=== PATIENT | female | born 1980 | race Caucasian/White ===

== ENCOUNTER → 2017-03-30 | Outpatient (CLI) | payer OTHER | END | disposition home or self-care (01) | LOC: LABWHC1 10:25 | PROVIDERS: ATTEND Obstetrics & Gynecology | DX: O99.419 Diseases of the circulatory system complicating pregnancy, unspecified trimester (principal); I49.9 Cardiac arrhythmia, unspecified; Z3A.00 Weeks of gestation of pregnancy not specified | CPT/HCPCS: 36415; 93005 ==

== ENCOUNTER 2017-07-23 17:42 | Outpatient (CLI) | payer OTHER ==
[2017-07-23] MEDS ORDERED: LACTATED RINGERS 1,000 ML IV SCH (18:30)
[2017-07-23 18:52] VITALS: BP 135/87; PULSE 115; RESP 18; TEMP 98.4
[2017-07-23 18:56] LABS: Basophils % (A) 0 %; CH 32.1; CHCM 35.7; Eosinophils # (A) 0.1 k/uL (0-0.7); Eosinophils % (A) 0 %; HCT 38.1 % (34.0-46.0); HDW 2.94; Luc % (Auto) 1; Lymphocytes # (A) 1.7 k/uL (1.0-4.8); Lymphocytes % (A) 13 %; MCH 30.9 pg (25.0-35.0); MCHC 34.1 g/dL (31.0-37.0); MCV 90.5 fL (80.0-100.0); Mean Platelet Volume 7.4; Monocytes # (A) 0.4 k/uL (0-1.0); Monocytes % (A) 3 %; Neutrophils # (A) 11.4 k/uL (1.3-7.7); Neutrophils % (A) 84 %; RBC 4.21 m/uL (3.80-5.40); WBC 13.6 k/uL (3.8-10.6)
--- NOTE | 2017-07-23 19:05 | P.HPOB ---
History of Present Illness H&P Date: 07/23/17 Chief Complaint: 28-3/7 weeks, spontaneous rupture of membranes The patient is a 36-year-old 3 para 1011 admitted to triage complaining of vaginal bleeding and leaking of fluid. [place] this early [place] and felt a small gush and then a much larger gush with bleeding when she got up. She has continued to leak since that time and presented to triage shortly thereafter. On labor and delivery, heart tones are reassuring and there is no contraction activity. This has been complicated by an episode of irregular heart rhythm which has been stable. She additionally was found with a low-lying placenta which remains in place by bedside ultrasound tonight which demonstrates what appears to be complete previa with a nondistended bladder. She additionally carries a history of a previous section at term for arrest of dilation and descent. She does fall into the category of advanced maternal age and declined testing. She denies any ongoing contractions and reports regular and normal movement. There were no precipitating events for this and she has no other risk factors. Obstetrical history: 3 para 1011 with 1 term delivery in uncomplicated fashion. Her second was complicated by acute CMV infection leading to hydropic changes in the second trimester and, ultimately resulting in medical interruption of . Current statistics are listed above. EDC of 10/12/2017 was established by last menstrual period and confirmed by 19 week ultrasound. Laboratory workup demonstrates a blood type of B+ with a negative antibody screen. Rubella status is immune. The remainder of the laboratory workup is within normal limits. One hour Glucola is normal as well. Group B strep status has not yet been done. Gynecologic history: Unremarkable with no history of any infections to include STDs. Review of Systems Review of systems is confined to history of present illness. Past Medical History History of Any Multi-Drug Resistant Organisms: None Reported Smoking Status: Former smoker Medications and Allergies Allergies Allergy/AdvReac Type Severity Reaction Status Date / Time Sulfa (Sulfonamide Allergy Rash/Hives Verified 07/23/17 18:16 Antibiotics) Exam - Vital Signs Vital signs: Vital Signs Temp Pulse Resp BP Pulse Ox 07/23/17 17:42 98.4 F 115 H 18 135/87 98 Intake and Output 07/23/17 07/23/17 07/23/17 06:59 14:59 22:59 Other: Weight 64.864 kg Patient Weight 07/24/17 06:59 Weight 64.864 kg In general, this is a pleasant, well-developed, well-nourished white female in no acute distress. Her heart has a regular rhythm and rate without murmur. Her lungs are clear to auscultation bilaterally in all humphrey. Her abdomen is gravid, nondistended, has normal active bowel sounds, is soft, nontender, and without any palpable masses aside from the uterine fundus. The uterus is soft and nontender without palpable contractions. Her extremities are without any cyanosis, clubbing, or edema and are nontender to palpation bilaterally. Digital cervical examination is not performed secondary to the presence of low lying placenta or possible complete previa. There is no significant ongoing vaginal bleeding of any kind. Assessment and Plan (1) 28 weeks gestation of Status: Acute (2) premature rupture of membranes Status: Acute (3) Marginal placenta previa Status: Acute Plan: Given the gestational age of the patient, she will be transferred to a tertiary care [place] from, likely [facility] in [place]. She is stable for transfer at this time with no contractions and heart tones reassuring. We will likely start prophylactic antibiotics as well as betamethasone. There is consideration for prophylactic magnesium sulfate as well. This will be further discussed with maternal medicine from whom I am awaiting a phone call. I have discussed the implications of prematurity with the patient at some length and she understands that she will likely remain as an inpatient for the remainder of her . She has accepted transfer.
[2017-07-23] MEDS ORDERED: BETAMET ACET-BETAMETH SOD PHOS 6 MG/ML VIAL IM SCH (19:15)
--- NOTE | 2017-07-23 19:17 | US ---
EXAMINATION TYPE: US OB >= 14 wk fetus DATE OF EXAM: 07/23/2017 COMPARISON: None CLINICAL HISTORY: 28 3/7 wks with spont. rom, and low lying placenta TECHNIQUE: Transabdominal (TA) GESTATIONAL AGE / DATING Physician Established: (28 weeks/3 days) EDC: 10/12/2017 Dates by Current Scan: (27 weeks/1 days) EDC: 10/21/2017 SURVEY IUP: Single PLACENTA: Posterior PREVIA: Complete,1.0 cm over internal os WALTER: 12.7 cm Normal CERVICAL LENGTH (transabdominal: norm > 3.0cm): 3.9 cm BIOMETRY PRESENTATION: Vertex BPD: 6.8 cm 27 weeks / 2 days HC: 25.4 cm 27 weeks / 4 days AC: 24.1 cm 28 weeks / 2 days FL: 5.0 cm 27 weeks / 0 days ESTIMATED WEIGHT IN GRAMS: 1123 grams ESTIMATED WEIGHT IN LBS/OZ: 2 lbs. 8 oz. WEIGHT PERCENTAGE BASED ON ESTABLISHED DATES: 16.7% HC/AC: 1.1 FL/AC: 20.9 HEART RATE: 162 bpm RHYTHM: Normal IMPRESSION: 1. LIVE IUP MEASURING 27 WEEKS 1 DAY. 2. SUBOPTIMAL VISUALIZATION OF CERVIX DUE TO NONDISTENDED BLADDER. 3. TRANSVAGINAL ULTRASOUND DEFERRED DUE TO POSSIBLE PROM.
[2017-07-23] MEDS ORDERED: MAGNESIUM SULFATE-D5W PMX 1 GM in DEXTROSE/WATER 1 100ML.BAG IVPB SCH (19:30)
[2017-07-23] MEDS: WATER FOR INJECTION IVPB STA ×2 (19:47→20:13)
[2017-07-23] MEDS: MAGNESIUM SULFATE WATER PMX IVPB STA ×2 (19:47→20:13)
[2017-07-23] MEDS ORDERED: AMPICILLIN 2,000 MG in SODIUM CHLORIDE 0.9% 100 ML IVPB SCH (20:00)
[2017-07-23] MEDS ORDERED: ERYTHROMYCIN IV 250 MG in SODIUM CHLORIDE 0.9% 250 ML IVPB SCH (21:00)
== END 2017-07-23 20:17 ==
LOC: FBPOP 17:42
PROVIDERS: ATTEND Obstetrics & Gynecology
DX: O42.913 Preterm premature rupture of membranes, unspecified as to length of time between rupture and onset of labor, third trimester (principal); O44.23 Partial placenta previa NOS or without hemorrhage, third trimester; Z3A.28 28 weeks gestation of pregnancy
CPT/HCPCS: 59025; 99215; 96361; 96365; 96366; 96372; 84112; 85025; 76805; J0702; J3475; J0290

== ENCOUNTER → 2024-10-27 | Outpatient (CLI) | payer BC ==
--- NOTE | 2024-11-03 19:29 | MM ---
Reason for Exam: Screening (asymptomatic). Patient History: Menarche at age 13. First Full-Term at age 31. Late child-bearing (after 30). Paternal grandmother had ovarian cancer, age 59. Mother had breast cancer, right, age 45. Last menstrual period: 10/27/2024 Risk Values: Izzy 5 year model risk: 1.4%. NCI Lifetime model risk: 18.8%. Prior Study Comparison: No prior studies available for comparison. Tissue Density: The breasts are heterogeneously dense, which may obscure small masses. Findings: Analyzed By CAD. 2 cm nodularity upper outer quadrant left breast for which evaluation is recommended. 3-D images suggested an obscured area of 1.3 cm nodularity lateral right CC view. Not clearly identified on the MLO view. Further evaluation recommended. No suspicious calcification or other discrete abnormality is seen. dye penetrant testing technician indicates that the patient feels an intermittent left-sided palpable lump. Overall Assessment: Incomplete: need additional imaging evaluation, BI-RAD 0 Management: Diagnostic Mammogram of both breasts. Diagnostic Breast Ultrasound of both breasts. Additional views on both sides to include 3-D ML. Subsequent whole bilateral breast ultrasounds given dense tissues. [facility] will attempt to contact patient to return for supplemental views and ultrasound. [facility], , 11/03/2024 6:37 PM. Electronically signed and approved by: Nawaf Baker M.D. Radiologist
== END | disposition home or self-care (01) ==
LOC: RADMAMWWP 15:36
PROVIDERS: ATTEND Family Medicine
DX: Z12.31 Encounter for screening mammogram for malignant neoplasm of breast (principal); Z80.3 Family history of malignant neoplasm of breast; R92.333 Mammographic heterogeneous density, bilateral breasts
CPT/HCPCS: 77063; 77067

== ENCOUNTER → 2024-11-16 | Outpatient (CLI) | payer BC ==
--- NOTE | 2024-11-16 10:59 | MM ---
Reason for Exam: Additional evaluation requested from abnormal screening. Last screening mammogram was performed less than 1 month ago. Patient History: Menarche at age 13. First Full-Term at age 31. Late child-bearing (after 30). Paternal grandmother had ovarian cancer, age 59. Mother had breast cancer, right, age 45. Risk Values: Izzy 5 year model risk: 1.4%. NCI Lifetime model risk: 18.8%. Prior Study Comparison: 10/27/2024 Bilateral MG 3D screening mammo w/cad, [facility]. Tissue Density: The breasts are heterogeneously dense, which may obscure small masses. Findings: Analyzed By CAD. There is a 2.0 cm circumscribed oval mass persists approximately 4 cm distance from nipple upper outer quadrant left breast on additional views. No suspicious persistent lesion in the right breast on additional views. Overall Assessment: Incomplete: need additional imaging evaluation, BI-RAD 0 Management: Diagnostic Breast Ultrasound of the left breast. Targeted ultrasound left breast. Results were given to the patient verbally at the time of exam. Patient should continue monthly self-breast exams. A clinical breast exam by your physician is recommended on an annual basis. This exam should not preclude additional follow-up of suspicious palpable abnormalities. Note on Izzy scores and lifetime risk: 1. A Izzy score greater than 3% is considered moderate risk. If this is the case, consider specialist referral to assess eligibility for a risk reducing agent. 2. If overall lifetime risk for the development of breast cancer is 20% or higher, the patient may qualify for future screening with alternating mammogram and breast MRI. [facility], , 11/16/2024 10:56 AM. Electronically signed and approved by: Vince Banks M.D.
--- NOTE | 2024-11-16 11:22 | USB ---
Reason for Exam: Additional evaluation requested from abnormal screening. Patient History: Menarche at age 13. First Full-Term at age 31. Late child-bearing (after 30). Paternal grandmother had ovarian cancer, age 59. Mother had breast cancer, right, age 45. Risk Values: Izzy 5 year model risk: 1.4%. NCI Lifetime model risk: 18.8%. Technique: Method: Targeted. Prior Study Comparison: 10/27/2024 Bilateral MG 3D screening mammo w/cad, [facility]. Findings: The upper outer quadrant of the left breast, the axilla of the left breast and the retroareolar of the left breast were scanned. Targeted ultrasound left breast shows a simple appearing thin-walled cyst measuring 1.9 x 1.4 x 0.6 cm 2:00 position 4 cm distance from nipple. Overall Assessment: Benign, BI-RAD 2 Management: Screening Mammogram of both breasts in 1 year. If cyst becomes painful, ultrasound-guided aspiration could be performed for therapeutic purposes. Return to routine follow-up. A clinical breast exam by your physician is recommended on an annual basis and results should be correlated with mammographic findings. This exam should not preclude additional follow-up of suspicious palpable abnormalities. Results were given to the patient verbally at the time of exam. [facility], , 11/16/2024 11:19 AM. Electronically signed and approved by: Vince Banks M.D.
== END | disposition home or self-care (01) ==
LOC: RADMAMWWP 10:09
PROVIDERS: ATTEND Family Medicine
DX: R92.8 Other abnormal and inconclusive findings on diagnostic imaging of breast (principal); R92.333 Mammographic heterogeneous density, bilateral breasts; Z80.3 Family history of malignant neoplasm of breast
CPT/HCPCS: 77062; 77066